=== PATIENT | male | born 1960 | race Caucasian/White ===

== ENCOUNTER 2018-03-16 14:17 | Emergency (ER) | payer OTHER ==
[2018-03-16] MEDS ORDERED: ASPIRIN 81 MG CHEWABLE CTB PO STA (14:18)
[2018-03-16] MEDS ORDERED: SODIUM CHLORIDE 0.9% FLUSH 10 ML SOL IV PRN ×2 (14:18→14:22)
[2018-03-16] MEDS ORDERED: NITROGLYCERIN 0.4 MG TAB SL PRN ×2 (14:18→14:22)
[2018-03-16] MEDS ORDERED: TICAGRELOR 90 MG TAB PO ONE (14:22)
[2018-03-16] MEDS ORDERED: MORPHINE SULFATE 10 MG/ML SOL IV PRN (14:22)
[2018-03-16] MEDS ORDERED: HEPARIN SODIUM 5000 U/ML SOL IV ONE (14:22)
[2018-03-16] MEDS ORDERED: HEPARIN SODIUM 5000 U/ML SOL ONE (14:24)
[2018-03-16] MEDS ORDERED: ASPIRIN 81 MG CHEWABLE CTB ONE (14:24)
[2018-03-16 14:25] VITALS: TEMP 97.7
[2018-03-16 14:25] LABS: BASOPHILS % (AUTO) 2 % (0-3); EOSINOPHILS % (AUTO) 1 % (0-9); HEMATOCRIT 49 % (39-53); HEMOGLOBIN 17.3 gm/dl (13.5-17.7); LYMPHOCYTES % (AUTO) 19.3 % (10-50); MEAN CORPUSCULAR HEMOGLOBIN 30.9 pg (27.0-32.0); MEAN CORPUSCULAR HGB CONC 35.4 gm/dl (32.0-36.0); MEAN CORPUSCULAR VOLUME 87 fL (80-100); MONOCYTES % (AUTO) 7.8 % (0-12); NEUTROPHILS % (AUTO) 70.2 % (37-80)
[2018-03-16 14:35] LABS: INR 0.99 (0.86-1.12)
[2018-03-16 14:42] LABS: CALCIUM 8.7 mg/dl (8.5-10.1); CREATININE 1.11 mg/dl (0.80-1.30); POTASSIUM 4.2 mMol/L (3.5-5.1); TROP I 2.552 ng/ml (0.000-0.056)
[2018-03-16 14:45] VITALS: BP 137/91; PULSE 93; RESP 14; O2SAT 92
== END 2018-03-16 15:05 | disposition short-term general hospital (02) | DRG 316 ==
LOC: ED 14:17
DX: I23.8 Other current complications following acute myocardial infarction (principal); E78.5 Hyperlipidemia, unspecified; I25.2 Old myocardial infarction; R79.89 Other specified abnormal findings of blood chemistry; R00.0 Tachycardia, unspecified; M54.9 Dorsalgia, unspecified; R61 Generalized hyperhidrosis; Z87.891 Personal history of nicotine dependence
CPT/HCPCS: 71045; 71275; 74175; 80048; 82550; 84484; 85025; 85610; 93005; 99291; 99292; J1644; Q9967